=== PATIENT | male | born 1980 | race Caucasian/White ===

== ENCOUNTER 2018-04-24 07:07 | Emergency (ER) | payer MEDICAID ==
[2018-04-24] MEDS: DIPHTH/TET/ACEL PERTUSS (ADULT) 0.5 ML VIAL IM* (07:58)
== END 2018-04-24 08:24 | disposition home or self-care (01) ==
LOC: FTE 07:07
DX: S61.032A Puncture wound without foreign body of left thumb without damage to nail, initial encounter (principal); S61.231A Puncture wound without foreign body of left index finger without damage to nail, initial encounter; W26.0XXA Contact with knife, initial encounter; Y92.89 Other specified places as the place of occurrence of the external cause; Z23 Encounter for immunization
CPT/HCPCS: 90471; 90715; 99283-25